=== PATIENT | male | born 1945 | race African-American/Black ===

== ENCOUNTER 2024-09-10 18:23 | Emergency (ER) | payer OTHER ==
[~2024-09-10] VITALS: Ht 185.4 cm; Wt 77.0 kg
[2024-09-10 18:34] VITALS: O2SAT 99
[2024-09-10 20:58] LABS: BASOPHILS % 0.2 % (0.0-2.0); EOSINOPHILS % 0.6 % (0.0-5.0); HEMATOCRIT. 32.8 % (42.0-52.0); HEMOGLOBIN. 11.4 g/dL (14.0-18.0); LYMPHOCYTES % 26.4 % (20.0-50.0); MEAN CORPUSCULAR HEMOGLOBIN 30.1 pg (28.0-32.0); MEAN CORPUSCULAR HGB CONC 34.9 g/dL (31.0-37.0); MEAN CORPUSCULAR VOLUME 86.2 fL (80.0-94.0); MEAN PLATELET VOLUME 8.3 fl (7.4-10.4); MONOCYTES % 8.2 % (2.0-8.0); NEUTROPHILS % 64.6 % (40.0-76.0); PLATELET 232 x1000/uL (130-400); RED CELL DISTRIBUTION WIDTH 13.4 % (11.6-14.6); WHITE BLOOD COUNT 5.9 x1000/uL (4.5-11.0)
[2024-09-10 21:01] LABS: CARBON DIOXIDE 28 mEq/L (21-32); CHLORIDE 104 mEq/L (98-107); POTASSIUM 3.4 mEq/L (3.5-5.1); SODIUM 141 mEq/L (136-145)
[2024-09-10 21:02] LABS: CALCIUM 9.5 mg/dL (8.7-10.4)
[2024-09-10 21:06] LABS: CREATININE 1.5 mg/dL (0.6-1.3); GLUCOSE 211 mg/dL (70-105)
[2024-09-10 21:07] LABS: UREA NITROGEN BLOOD 20 mg/dL (9-23)
[2024-09-10 21:08] LABS: TROPONIN I HIGH SENSITIVITY 6 ng/L (3.0-53)
[2024-09-10 21:09] LABS: PROTHROMBIN TIME 10.8 sec (9.6-11.0)
[2024-09-10 21:15] LABS: ETHANOL BLOOD < 10 mg/dL (<10)
[2024-09-10] MEDS: SODIUM CHLORIDE 0.9% 1,000 ML IV ONE (22:34)
[2024-09-11] MEDS: HYDRALAZINE 20MG/ML VIAL IV ONE (00:36)
[2024-09-11 01:35] VITALS: BP 140/74; PULSE 74; RESP 12; TEMP 36.6; O2SAT 99
== END 2024-09-11 01:40 | disposition short-term general hospital (02) ==
LOC: ER 18:23
DX: S37.009A Unspecified injury of unspecified kidney, initial encounter (principal); M16.12 Unilateral primary osteoarthritis, left hip; M17.11 Unilateral primary osteoarthritis, right knee; R29.6 Repeated falls; E11.9 Type 2 diabetes mellitus without complications; I10 Essential (primary) hypertension; W19.XXXA Unspecified fall, initial encounter; Y93.89 Activity, other specified; Y92.89 Other specified places as the place of occurrence of the external cause; Y99.8 Other external cause status
CPT/HCPCS: 80048; 80320; 83880; 85025; 85610; 84484; 36415; 73502; 71045; 73562; 70450; 93005; 96361; 99285; 96374; J7030; J0360; G0480